=== PATIENT | female | born 1990 | race Caucasian/White ===

== ENCOUNTER 2020-03-16 12:46 | Emergency (ER) | payer OTHER, SELFPAY ==
[2020-03-16 13:31] VITALS: BP 137/62; PULSE 60; RESP 16; TEMP 36.9; O2SAT 99; BMI 24.7
--- NOTE | 2020-03-16 13:32 | ED.FEMALEGU ---
HPI - Female Genitourinary General Chief complaint: Urogenital-Female Stated complaint: UTI Time Seen by Provider: 03/16/20 13:10 Source: patient Mode of arrival: ambulatory Limitations: no limitations History of Present Illness HPI Narrative: 30 y/o female presenting with painful urination for the last 3 days and new onset of small amounts of blood in her urine that started today. This is associated with lower abdominal discomfort & increase in urinary frequency. No fever, chills, flank pain, no vaginal discharge or vaginal bleeding. LMP 2 weeks ago. Last intercourse 1.5 weeks ago, no exposure to STI. MD elicited complaint: dysuria Onset (ago): day(s) (3) Location of symptoms: suprapubic Severity: moderate Female Urogenital Radiation: Non-Radiating Severity scale (1-10): 5 Quality of pain: burning Consistency: intermittent Vaginal discharge: none Vaginal bleeding: none Urinary symptoms: Dysuria, Frequency, Hematuria and Foul Smelling Urine Exacerbating factors: urination Relieving factors: none Associated symptoms: denies other symptoms Treatment prior to arrival: none Sexual activity: Yes Patient : No Related Data Previous Rx's Medication Instructions Recorded cefuroxime axetil 500 mg PO BID #10 tab 03/16/20 Allergies Allergy/AdvReac Type Severity Reaction Status Date / Time No Known Allergies Allergy Verified 03/16/20 13:30 Review of Systems Review of Systems: Constitutional: No Fever, No Chills Cardiovascular: No Chest Pain, No SO Respiratory: No Cough, No Sputum Gastrointestinal: No Nausea, No Vomiting, No Diarrhea, No abdominal Pain Genitourinary: + Dysuria, + Urinary Frequency, + Hematuria, No vaginal discharge, No vaginal bleeding Musculoskeletal: No joint pain, No Myalgias Skin: No Skin Lesions, No rash PMFSH Past Medical History Attestation statement: The following information was validated with the patient. Medical History No known health problems Social History Social History Advance Directives: No Advance Directives Information Provided: Yes Physical Exam Vital Signs: Vital Signs: Last Vital Signs Temp 98.4 F 03/16/20 13:31 Pulse 60 03/16/20 13:31 Resp 16 03/16/20 13:31 BP 137/62 03/16/20 13:31 Pulse Ox 99 03/16/20 13:31 Body Mass Index 24.7 Appearance: Alert. Oriented X3. No acute distress. ENT: Pharynx normal. Neck: Normal inspection. Respiratory: No respiratory distress. Breath sounds normal. Abdomen: Soft, mild suprapubic tenderness, normal +BS x4. NO CVA tenderness exam deferred Skin: Skin warm and dry. Normal skin color. Normal skin turgor. No rashes. Extremities: No lower extremity edema. Neuro: Oriented X 3. Course Course Course Narrative: 30 y/o female presenting with dysuria and hematruia. Likely UTI. Will check UA and Upreg. Deferring exam at this time, no vaginal discahrge, no pelvic pain. Reevaluation(s) Reevaluation #1: UA positive for LE, WBC, blood, bacteria as well as 1+ protein. Results discussed with patient - will treat for infection and have her follow up with PCP to ensure resolution of proteinuria. MDM - Female Genitourinary Differential Diagnosis Differential diagnosis: Likely urinary tract infection, vaginitis, cystitis and dysmenorrhea Lab Data Labs: Lab Results 03/16/20 03/16/20 Range/Units 13:50 13:50 Urine Color DARK YELLOW Urine Appearance CLOUDY Urine pH 6.0 (5.0-8.0) Ur Specific [place] >= 1.030 H (1.005-1.025) Urine Protein 1+ H (NEG-TRACE) MG/DL Urine Glucose (UA) NEG (NEG) MG/DL Urine Ketones NEG (NEG) MG/DL Urine Blood 1+ H (NEG) Urine Nitrite NEG (NEG) Ur Leukocyte Esterase TRACE H (NEG) Urine RBC 1-4 (0) /HPF Urine WBC 15-29 H (0-4) /HPF Ur Squamous Epith Cells 4+ /LPF Urine Bacteria TRACE /LPF Urine Mucus 2+ /LPF Urine Yeast TRACE /HPF Urine Test NEGATIVE (NEGATIVE) Discharge Plan Discharge Clinical Impression: Urinary tract infection Qualifiers: Urinary tract infection type: acute cystitis Hematuria presence: with hematuria Qualified Code(s): N30.01 - Acute cystitis with hematuria Patient Disposition: Home, Self-Care Instructions: Urinary Tract Infection in Women (ED) Additional Instructions: Your urine test today showed evidence of infection - we are starting your on antibiotics to treat this. You urine also showed small amount of protein - this can be related to the infection but should be followed up by you doctor to ensure resolution. If you have development of fevers or abdominal pain or worsening symptoms despite treatment come back to the ER for further evaluation. No sexual activity until all of you symptoms are completely resolved. Follow up with your doctor in 1 week. Prescriptions: New cefuroxime axetil 500 mg tablet 500 mg PO BID Qty: 10 RF: 0
[2020-03-16 14:01] LABS: Glucose Urine UA NEG (NEG); Leukocyte Esterase Urine TRACE (NEG); Nitrite Urine NEG (NEG); Specific Gravity - Urine >= 1.030 (1.005-1.025); Urine Blood 1+ (NEG); Urine Ketones NEG (NEG); Urine Protein 1+ MG/DL (NEG-TRACE)
[2020-03-16 14:02] LABS: Appearance Urine CLOUDY; Color Urine DARK YELLOW; UPreg QC Valid YES
[2020-03-16 14:03] LABS: Urine Pregnancy NEGATIVE (NEGATIVE)
[2020-03-16 14:11] LABS: Bacteria Urine TRACE /LPF; Mucus Urine 2+ /LPF; Squamous Epithelial Cell Urine 4+ /LPF
== END 2020-03-16 14:50 | disposition home or self-care (01) ==
PROVIDERS: Physician Assistant; Emergency Provider Emergency Medicine
DX: N30.01 Acute cystitis with hematuria (principal)
CPT/HCPCS: 81001; 81025; 87086; 87088; 99283

== ENCOUNTER 2020-05-19 13:19 | Outpatient (REF) | payer OTHER, SELFPAY | END 2020-05-19 13:20 | disposition home or self-care (01) | LOC: HO.LAB 13:19 | PROVIDERS: Visit Provider Internal Medicine | DX: Z20.822 Contact with and (suspected) exposure to COVID-19 (principal) | CPT/HCPCS: 36415; C9803; U0003 ==

== ENCOUNTER 2020-05-30 13:36 | Outpatient (REF) | payer OTHER, SELFPAY | END 2020-05-30 13:37 | disposition home or self-care (01) | LOC: HO.LAB 13:36 | PROVIDERS: Visit Provider Internal Medicine | DX: Z20.822 Contact with and (suspected) exposure to COVID-19 (principal) | CPT/HCPCS: 36415; C9803; U0003 ==